=== PATIENT | male | born 1990 | race Asian ===

== ENCOUNTER 2016-10-26 16:41 | Emergency (ER) | payer OTHER ==
[~2016-10-26] VITALS: Ht 185.4 cm; Wt 83.9 kg
[2016-10-26] MEDS ORDERED: ALPRAZOLAM0.5 MG PO (16:59)
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
[2016-10-26 18:39] VITALS: BP 105/75
== END 2016-10-26 18:45 | disposition home or self-care (01) ==
LOC: EMR 17:25
DX: F41.9 Anxiety disorder, unspecified (principal)
CPT/HCPCS: 99283